=== PATIENT | female | born 1990 | race Caucasian/White ===

== ENCOUNTER 2016-09-09 14:11 | Emergency (ER) | payer BC, OTHER ==
[~2016-09-09] VITALS: Ht 160 cm; Wt 62.0 kg
[~2016-09-09 14:11] MED LIST: LEVO1TAB6 PO
[2016-09-09] MEDS ORDERED: HYDROmorphone 1 MG/ML, 1ML ONE (14:51)
[2016-09-09] MEDS ORDERED: ONDANSETRON 2MG/ML, 2ML ONE (14:51)
[2016-09-09] MEDS ORDERED: SODIUM CHLORIDE 0.9% 1,000ML IVBOLUS ONE (15:00)
[2016-09-09] MEDS ORDERED: SODIUM CHLORIDE FLUSH 10ML SYR IVF ONE (15:00)
[2016-09-09] MEDS ORDERED: HYDROmorphone 1 MG/ML, 1ML IV ONE (15:00)
[2016-09-09] MEDS ORDERED: ONDANSETRON 2MG/ML, 2ML IVPush ONE (15:00)
[2016-09-09 15:27] LABS: ASPARTATE AMINO TRANSFERASE 18 U/L (15-37); BLOOD UREA NITROGEN 16 mg/dL (7-18)
[2016-09-09 16:26] VITALS: BP 126/77
== END 2016-09-09 16:57 | disposition home or self-care (01) ==
LOC: ED 16:51
DX: R19.7 Diarrhea, unspecified (principal); R10.11 Right upper quadrant pain; F12.10 Cannabis abuse, uncomplicated
CPT/HCPCS: 36415; 76700; 80053; 81003; 83690; 84703; 85025; 87324; 89055; 96361; 96374; 96375; 99285; J1170; J2405; J7030

== ENCOUNTER 2018-09-04 07:16 | Outpatient (CLI) | payer OTHER ==
[2018-09-04] MEDS ORDERED: SINCALIDE (KINEVAC) 5 MCG ONE (07:30)
== END 2018-09-04 23:59 | disposition home or self-care (01) ==
LOC: PETCFH 07:16
PROVIDERS: ATTEND Internal Medicine Gastroenterology
DX: Q44.7 Other congenital malformations of liver (principal); R10.11 Right upper quadrant pain; R11.2 Nausea with vomiting, unspecified
CPT/HCPCS: 78227; A9537; J2805